=== PATIENT | male | born 2005 | race Caucasian/White ===

== ENCOUNTER 2025-08-15 10:34 | Inpatient (IN) ==
--- NOTE | 2025-08-15 10:48 | Emergency Department Note ---
Impression & Plan Status epilepticus, Recurrent seizures, Epileptic seizure ED Provider Note Name: MAXIMILIAN SHEARER Age: 20 Sex: Male Arrives Via: Ambulance Informant: Patient, Father (Via phone), EMS ED Provider: Bakari Moore MD Chief Complaint: Seizure Impression: As per impressions above Medical Decision Making: Pleasant 20-year-old gentleman arrives for evaluation following a seizure. Initially reported as 45-minute seizure but my suspicion it was it was a shorter seizure than that but had a prolonged postictal period. On arrival patient is awake alert oriented NIH is 0. He is a bit nauseous and given some Zofran. He had not had his morning Keppra thus plan was to give a initial loading dose IV however patient proceeded to have another grand mal seizure. This lasted about 3 minutes before resolving and he was followed by relatively prolonged postictal period though patient did eventually returned back to baseline. He did receive IV Ativan during the seizure. Second 2 g of Keppra was also given in the setting of recurrent seizure. Labs are unremarkable. He has no headache no neurodeficits and this has happened multiple times before thus we will hold off on neuroimaging quite at this time. I did discuss this with the [facility] neurologist who did evaluate the patient via telemedicine. Plan to hospitalize overnight continued monitoring. I discussed the case with the patient's father as well over the phone and they will be driving from [place] to come to the hospital. We reviewed the patient's history of recurrent seizures. Hospitalist consulted who will further manage. Triage/Nursing Notes reviewed by Me Differential:Seizure, dissection, intracranial hemorrhage, intracranial mass, electrolyte imbalance, drug ingestion, many other pathologies of seizures considered Vital Signs: reviewed and remarkable for mild tachycardia on arrival Interventions: Normal saline bolus IV, Ativan IV, Keppra IV Labs:ED labs Reviewed by me and remarkable for prolactin level elevated. Mildly elevated white blood cell count consistent with recent seizure I do not feel this is consistent with infectious etiology at this time Imaging:Deferred given normal neurologic examination on arrival EKG:As per my interpretation. Indication altered mental status/seizure. Normal sinus rhythm at 98 bpm QTc of 457. There is no ectopy nor ischemia. There are no previous EKGs for comparison. Cardiac/Tele Monitoring: Cardiac Monitoring: An Order was placed for continuous cardiac monitoring. The monitor shows a rate of 90 with a normal sinus rhythm. Consults:Discussed with Dr. Barron of [facility] neurolog[facility] via telemedicine. Plan will be to continue monitoring as hospitalized patient. Hold off on neuroimaging unless further seizure activity or other concerning signs or symptoms develop. Discussed with Dr. Smith of hospitalist service who will further evaluate manage patient Plan: Disposition:Hospitalization. Condition: Fair History of Present Illness: 20-year-old male arrives for evaluation of seizure. Patient with a long history of seizures over the last 2 to 3 years. He is currently on Keppra XR 3000 mg daily. Patient states that he has been feeling well. Has been getting good sleep. No drugs alcohol or supplements being taken. Denies any specific stressors. This morning on awakening he apparently started having a full body tonic-clonic seizure. Witnessed by roommate. This lasted almost 45 minutes before gradually resolving. Patient was relatively confused afterwards which has completely resolved. EMS arrived and brought patient to ER. No interventions prior to arrival. Patient states he feels quite well. He has not missed any doses of his Keppra. Notes an abrasion to shoulder but no pain. Currently patient notes just some mild posterior headache similar to previous postseizure episodes. He has some mild nausea but states he is somewhat hungry. Denies any abdominal pain, back pain, chest pain, shortness of breath, leg swelling or other concerning signs or symptoms. Past Medical History: Seizures Home Medications: Keppra Allergies: No known drug allergies Vitals:Blood Pressure: 122/82, Pulse 108, RR 16, T 36.8C, O2 95% on RA Physical Exam: GENERAL: Patient is well appearing and in no acute distress. HEAD: AT/NC NECK: No TTP no step off RESPIRATORY: No dyspnea. Clear to auscultation and equal bilaterally. CARDIOVASCULAR: Regular rate and rhythm.No murmur appreciated. GASTROINTESTINAL: Abdomen soft, non-tender, no peritonitis. EXTREMITIES: Normal motion all extremities, no cyanosis, no edema. NEUROLOGIC: Alert and oriented. No focal neurologic deficits appreciated SKIN: No rash, no jaundice, no diaphoresis. PSYCH: Appropriate GCS: 15 ED Course: Times/Reassessments: Critical Care: I have personally spent 45 minutes of critical care time in the direct management of this patient. Status epilepticus requiring management of active seizure within the department. This was a life/limb threatening event. This 45 minutes is in excess of all separately billable procedures. Bakari Moore MD Past Med/Surg History Problem List (Updated 08/15/25 @ 16:02 by Bakari Moore MD) Epileptic seizure (Acute) Status epilepticus (Acute) Recurrent seizures (Acute) Social History Smoking Status: Never smoker Preferred Language: Chinese Feels Safe at Home: Yes Results & Data (ED) Vital Signs Vital Signs - 24 hr 08/15/25 10:38 08/15/25 10:47 08/15/25 12:15 Pulse Rate 108 H 103 H 96 H Pulse Rate [Right Finger] Respiratory Rate 16 24 Respiratory Effort / Characteristics Non-Labored Respiratory Depth Normal Respiratory Pattern Regular Blood Pressure 122/82 115/44 L Blood Pressure [Right Arm] Blood Pressure Mean 95 73 Blood Pressure Mean [Right Arm] Blood Pressure Position Sitting Pulse Oximetry 97 94 Oxygen Delivery Method Room Air Room Air Sepsis Recent Fever Within 48 Hours No Sepsis New/Unexplained Change in Mental Status No Sepsis Action Taken by Nursing No Action Required 08/15/25 13:34 08/15/25 13:45 08/15/25 14:01 Pulse Rate 90 Pulse Rate [Right Finger] 94 H Respiratory Rate 16 20 22 Respiratory Effort / Characteristics Non-Labored Spontaneous Respiratory Depth Normal Respiratory Pattern Blood Pressure 131/65 124/61 Blood Pressure [Right Arm] 140/67 Blood Pressure Mean 79 90 Blood Pressure Mean [Right Arm] 91 Blood Pressure Position Pulse Oximetry 99 98 96 Oxygen Delivery Method Room Air Room Air Room Air Sepsis Recent Fever Within 48 Hours Sepsis New/Unexplained Change in Mental Status Sepsis Action Taken by Nursing 08/15/25 14:15 08/15/25 14:30 08/15/25 14:45 Pulse Rate 94 H 88 Pulse Rate [Right Finger] Respiratory Rate 24 22 20 Respiratory Effort / Characteristics Respiratory Depth Respiratory Pattern Blood Pressure 137/69 131/63 125/60 Blood Pressure [Right Arm] Blood Pressure Mean 81 83 89 Blood Pressure Mean [Right Arm] Blood Pressure Position Pulse Oximetry 97 97 95 Oxygen Delivery Method Room Air Room Air Room Air Sepsis Recent Fever Within 48 Hours Sepsis New/Unexplained Change in Mental Status Sepsis Action Taken by Nursing Laboratory Data 08/15/25 10:48 08/15/25 10:48 Lab Results 08/15/25 Range/Units 10:48 WBC 13.17 H (4.8-10.8) K/ul RBC 5.57 (4.70-6.10) M/uL Hgb 16.2 (14.0-18.0) g/dl Hct 48.3 (42.0-52.0) % MCV 86.7 (80.0-100.0) fL MCH 29.1 (25.0-34.0) pg MCHC 33.5 (32.0-36.0) g/dL RDW Std Deviation 36.8 (36.4-46.3) fL RDW Coeff of Corazon 11.7 (11.5-14.5) % Plt Count 227 (130-400) K/uL MPV 10.3 (9.4-12.4) fL Immature Gran % (Auto) 0.3 % Neut % (Auto) 74.3 % Lymph % (Auto) 12.2 % Hill % (Auto) 8.4 % Eos % (Auto) 4.3 % Baso % (Auto) 0.5 % Neut # (Auto) 9.77 H (1.40-6.50) K/uL Lymph # (Auto) 1.61 (1.20-3.40) K/uL Hill # (Auto) 1.11 H (0.11-0.59) K/uL Eos # (Auto) 0.57 H (0.00-0.50) K/uL Baso # (Auto) 0.07 (0.00-0.20) K/uL Immature Gran # (Auto) 0.04 (0.01-0.20) K/uL Sodium 136 (136-145) mmol/L Potassium 4.3 (3.5-5.1) mmol/L Chloride 103 (98-107) mmol/L Carbon Dioxide 23 (21-32) mmol/L Anion Gap 10 (3-11) BUN 20 (6-23) mg/dl Creatinine 1.10 (0.6-1.4) mg/dl Est Cr Clr Drug Dosing Not Reportable eGFR 98.56 BUN/Creatinine Ratio 18.2 (10-20) Glucose 121 H (70-99(Fasting)) mg/dl Calcium 10.1 (8.6-10.3) mg/dl Magnesium 2.2 (1.7-2.4) mg/dl TSH 2.168 (0.300-4.500) uIu/ml Prolactin 43.49 ng/ml Administered Medications Discontinued Medications Sodium Chloride (Nss) 1,000 mls @ 999 mls/hr IV .Q1H1M ONE Stop: 08/15/25 11:44 Last Infusion: 08/15/25 11:45 Dose: Infused Documented By: Admin: 08/15/25 10:50 Dose: 999 mls/hr Documented By: QGV Levetiracetam (Levetiracetam 500 Mg/5 Ml Vial) 2,000 mg IV NOW STA Stop: 08/15/25 11:55 Last Admin: 08/15/25 12:16 Dose: 2,000 mg Documented By: QGV Levetiracetam (Levetiracetam 500 Mg/5 Ml Vial) 2,000 mg IV NOW STA Stop: 08/15/25 13:18 Last Admin: 08/15/25 13:49 Dose: 2,000 mg Documented By: NRB Lorazepam (Lorazepam 1 Mg/1 Ml Syr Ed Inj Use) Confirm Administered Dose 1 mg .ROUTE .STK-MED ONE Stop: 08/15/25 12:10 Last Admin: 08/15/25 12:16 Dose: Not Given Documented By: QGV Lorazepam (Lorazepam 1 Mg/1 Ml Syr Ed Inj Use) 2 mg IV ONE STA Stop: 08/15/25 12:10 Last Admin: 08/15/25 12:16 Dose: 2 mg Documented By: QGV Lorazepam (Lorazepam 1 Mg/1 Ml Syr Ed Inj Use) Confirm Administered Dose 1 mg .ROUTE .STK-MED ONE Stop: 08/15/25 12:11 Last Admin: 08/15/25 12:16 Dose: Not Given Documented By: QGV Ondansetron HCl (Ondansetron Inj 2 Mg/Ml 2 Ml Vial) Confirm Administered Dose 4 mg .ROUTE .STK-MED ONE Stop: 08/15/25 11:27 Last Admin: 08/15/25 12:15 Dose: Not Given Documented By: QGV Ondansetron HCl (Ondansetron Inj 2 Mg/Ml 2 Ml Vial) 4 mg IV NOW STA Stop: 08/15/25 11:29 Last Admin: 08/15/25 11:28 Dose: 4 mg Documented By: QGV Ondansetron HCl (Ondansetron Inj 2 Mg/Ml 2 Ml Vial) 4 mg IV NOW STA Stop: 08/15/25 12:47 Last Admin: 08/15/25 12:50 Dose: 4 mg Documented By: QGV Discharge Plan Visit Data Chief Complaint: Seizure ED Provider: Bakari Moore Discharge Problem: Status epilepticus, Recurrent seizures, Epileptic seizure Patient Disposition: Admitted As Inpatient Condition: Fair Discharge Instructions Interventions: ED Discharge Assessment Last Done: 08/15/25 15:42 Forms Stand Alone Forms: [facility] Referrals Referrals: PCP,NO [Physician] -
[2025-08-15] MEDS: SODIUM CHLORIDE 0.9% 1,000 ML IV ONE (10:50)
[2025-08-15 11:03] LABS: Hematocrit (blood only) 48.3 % (42.0-52.0); Hemoglobin 16.2 g/dl (14.0-18.0); Immature Granulocytes # (auto) 0.04 K/uL (0.01-0.20); Immature Granulocytes % (auto) 0.3 %; Mean Corpuscular Hemoglobin 29.1 pg (25.0-34.0); Mean Corpuscular Volume 86.7 fL (80.0-100.0); Platelet Count 227 K/uL (130-400); RDW Standard Deviation 36.8 fL (36.4-46.3); Red Blood Count 5.57 M/uL (4.70-6.10); White Blood Count 13.17 K/ul (4.8-10.8)
[2025-08-15 11:19] LABS: Anion Gap 10 (3-11); Blood Urea Nitrogen 20 mg/dl (6-23); Calcium 10.1 mg/dl (8.6-10.3); Carbon Dioxide 23 mmol/L (21-32); Chloride 103 mmol/L (98-107); Glucose 121 mg/dl (70-99(Fasting)); Magnesium 2.2 mg/dl (1.7-2.4); Potassium 4.3 mmol/L (3.5-5.1); Sodium 136 mmol/L (136-145)
[2025-08-15] MEDS: ONDANSETRON INJ 2 MG/ML 2 ML VIAL IV STA ×2 (11:28→12:50)
[2025-08-15 11:35] LABS: Thyroid Stimulating Hormone 2.168 uIu/ml (0.300-4.500)
[2025-08-15] MEDS: ONDANSETRON INJ 2 MG/ML 2 ML VIAL ONE (12:15)
[2025-08-15] MEDS: LORazepam 1 MG/1 ML SYR ED Inj Use ONE ×2 (12:16)
[2025-08-15] MEDS: LORazepam 1 MG/1 ML SYR ED Inj Use IV STA (12:16)
--- NOTE | 2025-08-15 13:59 | History & Physical Report ---
Date of Service August 15, 2025 Assessment & Plan (1) Recurrent seizures: Plan: Tonic-clonic in nature. The patient chronically takes zonisamide and Keppra XR. He received IV Keppra in the ED and IV Ativan. Teleneurology consultation is pending. Seizures were witnessed this morning by roommates. He is a student at [employer]. No recent head injury or evident infectious process. No sleep deprivation. Apparently he had recurrent tonic-clonic seizure activity while in the ED which was treated with intravenous Ativan. Plan Observation with telemetry. Seizure precautions. Await teleneurology evaluation. Continue Keppra and zonisamide. IV Ativan as needed History of Present Illness Chief Complaint: Recurrent tonicclonic seizure activity Primary Care Provider: [facility] 20-year-old white male who is a [employer] student who had a recurrent tonic-clonic seizure activity this morning witnessed by roommates. He states he only missed 1 dose of his usual Keppra XR 3000 mg a daily. He has no fever, no evidence of active infection, no recent head trauma, no lack of sleep. No other inciting agents. Teleneurology will be evaluating the patient shortly. He was given intravenous Ativan and intravenous Keppra while in the ED. Keppra level is pending. He is placed in observation with seizure precautions for further evaluation and treatment Past Med/Surg History Problem List (Updated 08/15/25 @ 13:58 by Kaz Smith MD) Recurrent seizures Social History Smoking Status: Never smoker Preferred Language: German Feels Safe at Home: Yes Review of Systems 2 Review of Systems: Constitutionalno fever or chills ENTno blurred vision, no double vision, no epistaxis, no sore throat Respiratoryno cough, no wheezing, no shortness of breath Cardiacno palpitations, no chest pain, no syncope Caprice nausea, vomiting, diarrhea, melena, hematochezia GUno urinary retention, no urinary incontinence, no dysuria, no hematuria Musculoskeletalno joint pain, no muscle tenderness Skinno bruising, no rashes, no pruritus Neurono isolated weakness, no paresthesia, no weakness Psychno depression, no anxiety Physical Exam 2 Physical Exam: General-mildly postictal but awake and alert. Mildly lethargic. No fever HEENT-head atraumatic and normocephalic, pupils equal and reactive to light, extraocular muscles intact Neck-no lymphadenopathy or thyromegaly, trachea midline Chest-clear to auscultation. No rales, wheezing or rhonchi Cardiac-regular rate and rhythm, normal S1 and S2 Abdomen-normal bowel sounds, no hepatosplenomegaly Extremities-no cyanosis, clubbing, or edema Neuro-cranial nerves II through XII intact, motor and sensory function within normal limits, strength symmetrical, no focal deficits Psych-normal affect, normal mood Results & Data Results & Data Vital Signs (Past 12 Hours) Vital Signs Pulse Pulse Resp BP BP Pulse Ox O2 Del Method 08/15/25 13:34 94 H 16 140/67 99 Room Air 08/15/25 12:15 96 H 24 115/44 L 94 Room Air 08/15/25 10:47 103 H 08/15/25 10:38 108 H 16 122/82 97 Room Air Laboratory Results 08/15/25 10:48 08/15/25 10:48 Code Status & VTE Plan Code Status Full code PG Care Time/CCT Total # of Minutes Spent Total Time Spent with Patient: Total time spent is greater than 50% in coordination of care (as documented) at patient's floor/unit and/or counseling patient: Coding Level of Care Code 39801 INT INP/OBS CARE 375MIN Diagnoses Recurrent seizures G40.909
--- NOTE | 2025-08-15 15:40 | Neurology Consultation ---
Date of Consultation August 15, 2025 Assessment & Plan (1) Recurrent seizures: 1. Intractable epilepsy. Acute recurrent generalized motor seizures (probable partial seizures with secondary generalized motor seizures per father's information), since age 18. Prior diagnostic testing to include MRI(brain) and EEG testing has been reportedly negative/unrevealing (? some mild EEG abnormalities), with last major diagnostic workup in February 2025. He has reported recurrent seizures every 2-3 months, usually with 2 seizures each time (similar to today). He has been on Keppra and Zonisamide Rx, with no reported medication changes in 1+ years, with reasonable reported medication levels (Keppra level reportedly on higher side). Patient reports good medication compliance. There are no current specific provocative factors specifically no reported sleep deprivation or any intercurrent metabolic/infectious processes (unprovoked seizures). He takes Lorazepam PRN for acute recurrent seizures. He is currently mildly encephalopathic (medication related), without any focal sensorimotor deficits. There was no reported injury (no falls or head injury) with seizures today. Plan 1. Would check both Keppra and Zonisamide levels (off initial ED blood), to as sure that they are in good therapeutic range and to assess medication compliance (if low, would imply suboptimal medication compliance. I can follow-up on the medication levels when they return in a few days, and let his father/him know. 2. Continue home medication Keppra (3000mg extended-release qAM) and Zonisamide (400mg qPM), confirmed by his father. Would emphasize optimal medication compl iance. Would consider increasing Zonisamide dose by 100mg daily, based on what upcoming medication level is (his outside Neurologist can decide on this). Did ask him/his father to discuss other potential anticonvulsant medication choices (reportedly has only tried Keppra and Zonisamide thus far) with his outside Neurologist in the near future. He can continue to use Lorazepam PRN as directed/prescribed for recurrent seizures. 3. No brain imaging or EEG study is necessary at this point (just had testing in February2025). 4. Appropriate seizure and fall precautions. No driving. 5. Periodic neuro checks per protocol. 6. Follow-up with his local Neurologist after hospital discharge. Thank you for the TeleNeurology consult. If there are additional questions, issues, or concerns, please re-contact me. Manoj Barron MD Telehealth Consultation Telehealth Information Telehealth Information: I performed this visit using a real-time telehealth connection between my location and the patients originating location ([facility]). After connecting through interactive tele-video, patient was identified by name and date of and/or wristband check.Patient (or authorized healthcare patient care representative) was informed that this was a telemedicine visit and it was being conducted confidentially over secure lines. My office door was closed and no one else was present in the room with me.Patient (or authorized healthcare patient care representative) provided consent to proceed with the visit, expressed an understanding of privacy and security of the telemedicine visit, and gave permission to have a hospital patient care representative in the room in order to assist with the visit and to conduct portions of the visit, as needed. I informed the patient (or authorized healthcare patient care representative) that I reviewed their record and presented the opportunity for them to ask any questions regarding the visit today. The patient agreed to participate. History of Present Illness Reason for Consultation: Recurrent seizures Requesting Physician: Dr. Josesito Smith Attending Physician: Kaz Smith MD Patient History Social History Smoking Status: Never smoker Preferred Language: Georgian Feels Safe at Home: Yes Results & Data Vital Signs (Past 12 Hours) Vital Signs Pulse Pulse Resp BP BP Pulse Ox O2 Del Method 08/15/25 14:45 88 20 125/60 95 Room Air 08/15/25 14:30 94 H 22 131/63 97 Room Air 08/15/25 14:15 24 137/69 97 Room Air 08/15/25 14:01 22 124/61 96 Room Air 08/15/25 13:45 90 20 131/65 98 Room Air 08/15/25 13:34 94 H 16 140/67 99 Room Air 08/15/25 12:15 96 H 24 115/44 L 94 Room Air 08/15/25 10:47 103 H 08/15/25 10:38 108 H 16 122/82 97 Room Air
[2025-08-15] MEDS ORDERED: LORazepam Inj 2 MG in SYRINGE 1 ML IV PRN (16:15)
[2025-08-15] MEDS ORDERED: ACETAMINOPHEN 325 MG TAB PO PRN (16:15)
[2025-08-15] MEDS ORDERED: ONDANSETRON INJ 2 MG/ML 2 ML VIAL IV PRN (16:15)
[2025-08-15] MEDS ORDERED: INFLUENZA VACC TS2025-26(6m+)/PF (IIV3) 0.5mL Syr IM ONE (16:30)
[2025-08-15] MEDS: SODIUM CHLORIDE 0.9% 1,000 ML IV SCH (16:47)
[2025-08-15] MEDS: levETIRAcetam 500 MG TAB PO SCH (20:30)
[2025-08-15] MEDS: ZONISAMIDE 100 MG CAPSULE PO SCH (20:34)
--- NOTE | 2025-08-15 20:57 | Discharge Summary ---
Date of Service August 15, 2025 Admission HPI Per Admitting Provider 20-year-old white male who is a [employer] student who had a recurrent tonic-clonic seizure activity this morning witnessed by roommates. He states he only missed 1 dose of his usual Keppra XR 3000 mg a daily. He has no fever, no evidence of active infection, no recent head trauma, no lack of sleep. No other inciting agents. Teleneurology will be evaluating the patient shortly. He was given intravenous Ativan and intravenous Keppra while in the ED. Keppra level is pending. He is placed in observation with seizure precautions for further evaluation and treatment Admission Exam Per Admitting Provider General-mildly postictal but awake and alert. Mildly lethargic. No fever HEENT-head atraumatic and normocephalic, pupils equal and reactive to light, extraocular muscles intact Neck-no lymphadenopathy or thyromegaly, trachea midline Chest-clear to auscultation. No rales, wheezing or rhonchi Cardiac-regular rate and rhythm, normal S1 and S2 Abdomen-normal bowel sounds, no hepatosplenomegaly Extremities-no cyanosis, clubbing, or edema Neuro-cranial nerves II through XII intact, motor and sensory function within normal limits, strength symmetrical, no focal deficits Psych-normal affect, normal mood Principal Diagnosis recurrent seizures Discharge Exam Constitutional: no acute distress HEENT: NCAT, no conjunctival injection CV: extremities well-perfused, no LE edema Resp: no increased work of breathing GI: nondistended MSK: no gross deformities Skin: warm, dry, no rash appreciated Neuro: alert, oriented, no focal neurologic deficit appreciated Discharge Data Allergies Allergy/AdvReac Type Severity Reaction Status Date / Time No Known Allergies Allergy Verified 08/15/25 16:44 Consultations 08/15/25 13:17 ED Decision to Admit Stat 08/15/25 13:47 Consult Neurology Stat Hospital Course (1) Recurrent seizures: Plan 20-year-old male [employer] student presented after a witnessed recurrent tonic-clonic seizure without clear trigger or precipitating factor: #Recurrent seizures: 2 seizures total (1 at home, 1 in ED) - S/P IV Keppra 4g and IV Ativan 2mg in ED Tele-neurology consulted: - no recommendation for repeat EEG or brain imaging - Keppra and Zonisamide levels pending, follow up on results in outpatient setting - In the interim, continue home medications: Keppra (3000mg extended-release qAM) and Zonisamide (400mg qPM) - Patient and father expressed strong desire to be discharged overnight - father agrees to monitor patient overnight, has maintenance and rescue medications at home, and will bring patient back to ED if he has any additional seizure activity - F/U with outpatient neurology shortly after discharge, meds may require adjustment based on Keppra and zonisamide levels Total Time Total Time Spent Total Time Spent (In Minutes): see attending attestation Discharge Plan Discharge Items Patient Disposition: Home - Self-Care Reason For Visit: RECURRENT SEIZURES Discharge Diagnosis: breakthrough seizures Condition on Discharge: Fair Activity: Resume your previous activity Non-emergency contact: Primary Care Provider and Neurologist Call non-emergency contact if: you have any medication questions and your symptoms worsen Follow-up/Referrals: [facility] [Primary Care Provider] - Diet: Regular Addtl Attending Provider Instructions: You were admitted due to breakthrough seizures. While the initial plan was to observe you overnight, given your strong desire to be discharged, we feel it is reasonable for you to be discharged given the following stipulations: - Dad to remain with you overnight - Please return if you have any additional seizures Please follow up promptly with your outpatient PCP and neurologist. You had Keppra and Zonisamide blood levels drawn while in the hospital. Please follow up on these results with your outpatient doctors when results are available. For now, continue your home meds. If your blood levels are low, your outpatient neurologist may recommend adjusting your medications. Pending Studies at Discharge: Yes (Keppra and Zonisamide levels) Stand-Alone Forms: [facility], Smoking Cessation Medications and DC Order Discharge Orders: Discharge Order (Routine); Ordered 08/15/25 Ordered By: Paolo Erickson/Other Patient Handouts: How Seizures Affect the Body, Self-Care for Seizures, Safety During a Seizure Admission Data Admit Date/Time: 08/15/25 13:48 Attending Provider: Kaz Smith Admit Provider: Kaz Smith Primary Care Provider: [facility] Other Providers: Kaz Smith; Manoj Barron Other Interventions: Discharge Summary Assessment (RN) Last Done: 08/15/25 20:59 Resident Activity Tracking Resident Involvement: Resident Care Provided Care Provided: Adult Hospital Medicine
--- NOTE | 2025-08-16 22:31 | Electrocardiogram Report ---
Test Reason : Blood Pressure : */* mmHG Vent. Rate : 98 BPM Atrial Rate : 98 BPM P-R Int : 174 ms QRS Dur : 110 ms QT Int : 358 ms P-R-T Axes : 6 70 3 degrees QTcB Int : 457 ms Normal sinus rhythm Normal ECG No previous ECGs available Confirmed by Tc Koehler ([id number]) on 08/16/2025 10:31:44 PM Referred By: Confirmed By: Tc Koehler
== END 2025-08-15 21:23 | disposition home or self-care (01) | DRG 101 ==
LOC: SUATTDRO → ED 10:34 → 2N 13:48
DX: G40.919 Epilepsy, unspecified, intractable, without status epilepticus